=== PATIENT | female | born 1935 | race Caucasian/White ===

== ENCOUNTER 2017-09-07 00:27 | Emergency (ER) | payer OTHER, SELFPAY ==
[~2017-09-07] VITALS: Ht 144.8 cm; Wt 61.2 kg
[~2017-09-07 00:27] MED LIST: ALFALFA250 MG; Antivert25 MG PO; Aspirin EC81 MG; BLOOD PRESSURE MED; CLOP75 PO; DIABETES; DICL75ER; DIGO.125; FISH1000 PO; GABA600 PO; GLIP10 PO; GLYMET5; INSLI100I SC; INSULANI SC; INSULANPEN SC; LEVFLO500 PO; LEVO750 PO; LEVSOD50 PO; LISI5; LISI5 PO; LOVA40 PO; METO50; METO50ER PO; METR500 PO; MULTI VITAMIN1 EACH PO; MULVITB&C PO; NIAC500 PO; NITR100CA PO; ONDA4 PO; ONDA4ODT MM; QUIN5; RANI150; RANI150 PO; RXONDA4ODT MM; SPIR25; TOCO400 PO; TRAM50 PO; [UNRECOGNIZED DRUG - REMARK]
[2017-09-07 01:08] LABS: Hematocrit 34.9 % (33.0-51.0); Mean Corpuscular HGB 31.9 pg (26.0-34.0); Mean Corpuscular HGB Conc 34.4 g/dL (31.5-36.5); Mean Corpuscular Volume 93 fL (80-100); Mean Platelet Volume 11.1 fL (9.1-12.4); Platelet Count 182 K/mm3 (150-400); RDW Coefficient Variation 12.1 % (11.7-14.2); RDW Standard Deviation 41.5 fL (35.1-46.3); Red Blood Cell Count 3.76 M/mm3 (3.80-5.20); White Blood Cell Count 5.31 K/mm3 (4.00-11.30)
[2017-09-07 01:23] LABS: Albumin, Blood 3.6 g/dL (3.4-5.0); Bilirubin, Total 0.3 mg/dL (0.1-1.0); Bun/Creatinine Ratio 21.4 (12.0-20.0); Calcium, Blood 8.3 mg/dL (8.5-10.1); Creatinine, Blood 1.03 mg/dL (0.40-1.00); Globulin, Blood 3.6 g/dL (2.2-4.0); Potassium, Blood 3.7 mmol/L (3.5-5.5); Total Protein, Blood 7.2 g/dL (6.4-8.2); Troponin I 0.028 ng/mL (0.000-0.040)
[2017-09-07 01:25] LABS: BAND PERCENT MAN 12 % (0-8); BASOPHILS PERCENT MAN 0 % (0-2); EOSINOPHILS PERCENT MAN 2 % (0-6); LYMPHOCYTES ABSOLUTE MAN 0.31 K/mm3 (0.84-5.20); LYMPHOCYTES PERCENT MAN 6 % (21-46); MONOCYTES ABSOLUTE MAN 0.42 K/mm3 (0.16-1.47); MONOCYTES PERCENT MAN 8 % (4-13); NEUTROPHILS ABSOLUTE MAN 4.46 K/mm3 (1.96-9.15); SEG NEUTROPHILS PERCENT MAN 72 % (41-73); TOTAL CELLS COUNTED 100
[2017-09-07 01:57] LABS: Influenza A Negative (NEGATIVE); Influenza B Positive (NEGATIVE)
== END 2017-09-07 03:25 | disposition home or self-care (01) ==
LOC: ER 00:27
PROVIDERS: Emergency Medicine
DX: R55 Syncope and collapse (principal); J10.1 Influenza due to other identified influenza virus with other respiratory manifestations; Z88.2 Allergy status to sulfonamides; Z88.1 Allergy status to other antibiotic agents; Z79.899 Other long term (current) drug therapy; Z79.82 Long term (current) use of aspirin; Z79.84 Long term (current) use of oral hypoglycemic drugs; E11.9 Type 2 diabetes mellitus without complications; I11.0 Hypertensive heart disease with heart failure; I50.9 Heart failure, unspecified
CPT/HCPCS: 71046; 80053; 84484; 85025; 87804; 93005; 93010; 99283; J7030

== ENCOUNTER 2017-09-12 19:14 | Observation (INO) | payer OTHER, SELFPAY ==
[~2017-09-12] VITALS: Ht 144.8 cm; Wt 57.4 kg
[2017-09-12 20:08] LABS: BASOPHILS ABSOLUTE AUTO 0.01 K/mm3 (0.00-0.23); BASOPHILS PERCENT AUTO 0 % (0-2); EOSINOPHILS ABSOLUTE AUTO 0.02 K/mm3 (0.00-0.68); EOSINOPHILS PERCENT AUTO 0 % (0-6); Hematocrit 39.8 % (33.0-51.0); Hemoglobin 14.3 g/dL (11.5-16.0); IMMATURE GRAN ABSOLUTE AUTO 0.01 K/mm3 (0.00-0.10); IMMATURE GRAN PERCENT AUTO 0 % (0-1); LYMPHOCYTES ABSOLUTE AUTO 2.12 K/mm3 (0.84-5.20); LYMPHOCYTES PERCENT AUTO 42 % (21-46); MONOCYTES ABSOLUTE AUTO 0.34 K/mm3 (0.16-1.47); MONOCYTES PERCENT AUTO 7 % (4-13); Mean Corpuscular HGB 31.4 pg (26.0-34.0); Mean Corpuscular HGB Conc 35.9 g/dL (31.5-36.5); Mean Corpuscular Volume 88 fL (80-100); Mean Platelet Volume 10.7 fL (9.1-12.4); NEUTROPHILS PERCENT AUTO 50 % (41-73); Platelet Count 240 K/mm3 (150-400); RDW Coefficient Variation 11.9 % (11.7-14.2); RDW Standard Deviation 38.5 fL (35.1-46.3); Red Blood Cell Count 4.55 M/mm3 (3.80-5.20)
[2017-09-12 20:28] LABS: Bilirubin, Total 0.5 mg/dL (0.1-1.0); Bun/Creatinine Ratio 24.5 (12.0-20.0); Calcium, Blood 9.5 mg/dL (8.5-10.1); Creatinine, Blood 1.02 mg/dL (0.40-1.00); Globulin, Blood 4.1 g/dL (2.2-4.0); Potassium, Blood 3.9 mmol/L (3.5-5.5); Total Protein, Blood 8.1 g/dL (6.4-8.2); Troponin I 0.047 ng/mL (0.000-0.040)
[2017-09-12 20:39] LABS: Source, Urine Catheter
[2017-09-12 20:45] LABS: Bilirubin, Urine Neg (Neg); Blood, Urine Neg (Neg); Glucose Qualitative, Urine Neg (Neg); Ketones, Urine 1+ (Neg); Leukocyte Esterase, Urine Neg (Neg); Nitrite, Urine Neg (Neg); Protein, Urine Neg (Neg); Specific Gravity, Urine 1.005 (1.003-1.022); Urobilinogen, Urine NORM (Normal)
[2017-09-12 21:11] LABS: Appearance, Urine Clear (Clear); Color, Urine Yellow (P-Yellow)
[2017-09-12] MEDS ORDERED: LEVSOD50 PO (23:50)
[2017-09-13 02:18] LABS: Influenza A Negative (NEGATIVE); Influenza B Negative (NEGATIVE)
[2017-09-13 02:40] LABS: BASOPHILS ABSOLUTE AUTO 0.01 K/mm3 (0.00-0.23); BASOPHILS PERCENT AUTO 0 % (0-2); EOSINOPHILS ABSOLUTE AUTO 0.02 K/mm3 (0.00-0.68); EOSINOPHILS PERCENT AUTO 1 % (0-6); Hematocrit 35.5 % (33.0-51.0); Hemoglobin 12.3 g/dL (11.5-16.0); Mean Corpuscular HGB 31.2 pg (26.0-34.0); Mean Corpuscular HGB Conc 34.6 g/dL (31.5-36.5); Mean Corpuscular Volume 90 fL (80-100); Mean Platelet Volume 10.8 fL (9.1-12.4); Platelet Count 188 K/mm3 (150-400); RDW Standard Deviation 39.6 fL (35.1-46.3); Red Blood Cell Count 3.94 M/mm3 (3.80-5.20); White Blood Cell Count 4.25 K/mm3 (4.00-11.30)
[2017-09-13 02:46] LABS: IMMATURE GRAN ABSOLUTE AUTO 0.01 K/mm3 (0.00-0.10); IMMATURE GRAN PERCENT AUTO 0 % (0-1); LYMPHOCYTES ABSOLUTE AUTO 1.49 K/mm3 (0.84-5.20); LYMPHOCYTES PERCENT AUTO 35 % (21-46); MONOCYTES ABSOLUTE AUTO 0.33 K/mm3 (0.16-1.47); MONOCYTES PERCENT AUTO 8 % (4-13); NEUTROPHILS ABSOLUTE AUTO 2.39 K/mm3 (1.96-9.15); NEUTROPHILS PERCENT AUTO 56 % (41-73)
[2017-09-13 03:03] LABS: Creatine Kinase MB 2.4 ng/mL (0.0-3.6); Creatine Kinase MB Index 1.2 (0.0-4.0); Troponin I 0.045 ng/mL (0.000-0.040)
[2017-09-13 03:04] LABS: Anion Gap 11 mmol/L (6-16); Blood Urea Nitrogen 23 mg/dL (8-24); Bun/Creatinine Ratio 25.4 (12.0-20.0); CO2, Blood 24 mmol/L (21-32); Calcium, Blood 8.1 mg/dL (8.5-10.1); Chloride, Blood 103 mmol/L (98-108); Cholesterol 128 mg/dL (50-200); Creatinine, Blood 0.91 mg/dL (0.40-1.00); Glomerular Filtration Rate >60 (60-); Glucose, Blood 204 mg/dL (70-99); Potassium, Blood 3.7 mmol/L (3.5-5.5); Sodium, Blood 138 mmol/L (136-145); Triglycerides 122 mg/dL (30-160)
[2017-09-13 08:42] LABS: Creatine Kinase MB 2.1 ng/mL (0.0-3.6); Creatine Kinase MB Index 1.1 (0.0-4.0); Troponin I 0.051 ng/mL (0.000-0.040)
== END 2017-09-14 11:54 | disposition home or self-care (01) ==
LOC: ER 19:14 → MEDS 19:15 → PCU 19:15 → ER 22:26 → PCU 23:35 → MEDS 09-13 20:00 → ENPENDDIS 09-14 09:24 → MEDS 09-14 11:54
PROVIDERS: Emergency Medicine; Family Medicine
DX: R07.9 Chest pain, unspecified (principal); R06.02 Shortness of breath; R79.89 Other specified abnormal findings of blood chemistry; R19.7 Diarrhea, unspecified; E11.9 Type 2 diabetes mellitus without complications; I16.0 Hypertensive urgency; I11.0 Hypertensive heart disease with heart failure; I50.9 Heart failure, unspecified; E03.9 Hypothyroidism, unspecified; Z79.01 Long term (current) use of anticoagulants; Z86.19 Personal history of other infectious and parasitic diseases; Z95.0 Presence of cardiac pacemaker; Z90.49 Acquired absence of other specified parts of digestive tract; Z96.643 Presence of artificial hip joint, bilateral; Z98.890 Other specified postprocedural states; Z90.710 Acquired absence of both cervix and uterus; Z88.1 Allergy status to other antibiotic agents; Z88.2 Allergy status to sulfonamides; Z79.899 Other long term (current) drug therapy
CPT/HCPCS: 36415; 51701; 71046; 80048; 80053; 81003; 82465; 82550; 82553; 82947; 83605; 83880; 84443; 84478; 84484; 85025; 87493; 87804; 93005; 93010; 96360; 96361; 99285; G0378; J1650; J1815; J7030

== ENCOUNTER 2018-02-14 12:01 | Emergency (ER) | payer OTHER ==
[~2018-02-14] VITALS: Ht 144.8 cm; Wt 59.9 kg
[2018-02-14 12:51] LABS: BASOPHILS ABSOLUTE AUTO 0.04 K/mm3 (0.00-0.23); BASOPHILS PERCENT AUTO 1 % (0-2); EOSINOPHILS ABSOLUTE AUTO 0.16 K/mm3 (0.00-0.68); EOSINOPHILS PERCENT AUTO 2 % (0-6); Hematocrit 34.9 % (33.0-51.0); Hemoglobin 11.9 g/dL (11.5-16.0); IMMATURE GRAN ABSOLUTE AUTO 0.02 K/mm3 (0.00-0.10); IMMATURE GRAN PERCENT AUTO 0 % (0-1); LYMPHOCYTES ABSOLUTE AUTO 2.04 K/mm3 (0.84-5.20); LYMPHOCYTES PERCENT AUTO 27 % (21-46); MONOCYTES ABSOLUTE AUTO 0.58 K/mm3 (0.16-1.47); MONOCYTES PERCENT AUTO 8 % (4-13); Mean Corpuscular HGB 31.7 pg (26.0-34.0); Mean Corpuscular HGB Conc 34.1 g/dL (31.5-36.5); Mean Corpuscular Volume 93 fL (80-100); NEUTROPHILS ABSOLUTE AUTO 4.81 K/mm3 (1.96-9.15); NEUTROPHILS PERCENT AUTO 63 % (41-73); Platelet Count 273 K/mm3 (150-400); RDW Coefficient Variation 12.8 % (11.7-14.2); RDW Standard Deviation 43.7 fL (35.1-46.3); Red Blood Cell Count 3.75 M/mm3 (3.80-5.20); White Blood Cell Count 7.65 K/mm3 (4.00-11.30)
[2018-02-14 13:05] LABS: Albumin, Blood 3.5 g/dL (3.4-5.0); Albumin/Globulin Ratio 0.8 (0.8-1.8); Bilirubin, Total 0.3 mg/dL (0.1-1.0); Bun/Creatinine Ratio 22.5 (12.0-20.0); Calcium, Blood 9.3 mg/dL (8.5-10.1); Creatinine, Blood 1.02 mg/dL (0.40-1.00); Globulin, Blood 4.2 g/dL (2.2-4.0); Potassium, Blood 4.4 mmol/L (3.5-5.5); Total Protein, Blood 7.7 g/dL (6.4-8.2)
[2018-02-15] MEDS ORDERED: PRED5 PO (16:16)
== END 2018-02-14 18:34 | disposition home or self-care (01) ==
LOC: ER 12:01
PROVIDERS: Nurse Practitioner Family
DX: M86.9 Osteomyelitis, unspecified (principal); Z88.2 Allergy status to sulfonamides; Z88.1 Allergy status to other antibiotic agents; Z79.899 Other long term (current) drug therapy; Z79.82 Long term (current) use of aspirin; E11.9 Type 2 diabetes mellitus without complications; I11.0 Hypertensive heart disease with heart failure; I50.9 Heart failure, unspecified
CPT/HCPCS: 36415; 73201; 80053; 85025; 96360; 99284-25; J7030; Q9967

== ENCOUNTER 2018-02-15 12:19 | Inpatient (IN) | payer OTHER ==
[~2018-02-15] VITALS: Ht 152.4 cm; Wt 63.3 kg
[2018-02-15] MEDS ORDERED: PRED5 PO (16:16)
[2018-02-16 05:01] LABS: BASOPHILS ABSOLUTE AUTO 0.05 K/mm3 (0.00-0.23); BASOPHILS PERCENT AUTO 1 % (0-2); EOSINOPHILS ABSOLUTE AUTO 0.25 K/mm3 (0.00-0.68); EOSINOPHILS PERCENT AUTO 4 % (0-6); Hematocrit 33.6 % (33.0-51.0); Hemoglobin 11.5 g/dL (11.5-16.0); IMMATURE GRAN ABSOLUTE AUTO 0.02 K/mm3 (0.00-0.10); IMMATURE GRAN PERCENT AUTO 0 % (0-1); LYMPHOCYTES ABSOLUTE AUTO 1.98 K/mm3 (0.84-5.20); LYMPHOCYTES PERCENT AUTO 30 % (21-46); MONOCYTES ABSOLUTE AUTO 0.53 K/mm3 (0.16-1.47); MONOCYTES PERCENT AUTO 8 % (4-13); Mean Corpuscular HGB 31.1 pg (26.0-34.0); Mean Corpuscular HGB Conc 34.2 g/dL (31.5-36.5); Mean Corpuscular Volume 91 fL (80-100); NEUTROPHILS ABSOLUTE AUTO 3.74 K/mm3 (1.96-9.15); NEUTROPHILS PERCENT AUTO 57 % (41-73); Platelet Count 298 K/mm3 (150-400); RDW Coefficient Variation 12.9 % (11.7-14.2); RDW Standard Deviation 42.2 fL (35.1-46.3); White Blood Cell Count 6.57 K/mm3 (4.00-11.30)
[2018-02-16 05:20] LABS: International Normalized Ratio 0.99; Prothrombin Time Results 10.2 Sec (9.7-11.5)
[2018-02-16 05:28] LABS: Albumin, Blood 3.1 g/dL (3.4-5.0); Albumin/Globulin Ratio 0.8 (0.8-1.8); Bilirubin, Total 0.3 mg/dL (0.1-1.0); Bun/Creatinine Ratio 21.4 (12.0-20.0); Calcium, Blood 9.4 mg/dL (8.5-10.1); Creatinine, Blood 1.03 mg/dL (0.40-1.00); Globulin, Blood 3.8 g/dL (2.2-4.0); Potassium, Blood 3.7 mmol/L (3.5-5.5); Total Protein, Blood 6.9 g/dL (6.4-8.2)
[2018-02-17] MEDS ORDERED: Tylenol325 MG PO (11:01)
[2018-02-17] MEDS ORDERED: HYDR1TAB94 PO (11:03)
[2018-02-17] MEDS ORDERED: LEVFLO500 PO (11:07)
== END 2018-02-17 11:46 | disposition home or self-care (01) | DRG 514 ==
LOC: ER 12:19 → MEDS 12:20 → ENPENDDIS 02-17 10:00 → MEDS 02-17 11:46
PROVIDERS: Internal Medicine; Orthopaedic Surgery
PROC: 0X6N0Z1 Detachment at Right Index Finger, High, Open Approach (ICD-10-PCS; principal; 2018-02-16 12:30)
DX: M86.641 Other chronic osteomyelitis, right hand (principal); Z79.82 Long term (current) use of aspirin; Z79.4 Long term (current) use of insulin; I50.9 Heart failure, unspecified; I11.0 Hypertensive heart disease with heart failure; Z96.643 Presence of artificial hip joint, bilateral; E03.9 Hypothyroidism, unspecified; E11.40 Type 2 diabetes mellitus with diabetic neuropathy, unspecified; Z95.0 Presence of cardiac pacemaker
CPT/HCPCS: 36415; 80048; 80053; 82947; 85025; 85027; 85610; 88305; 88311; 96365; 99285-25; J0360; J2001; J2250; J2370; J3010; J3370; J7120

== ENCOUNTER 2018-02-27 09:52 | Emergency (ER) | payer OTHER ==
[~2018-02-27] VITALS: Ht 139.7 cm; Wt 62.6 kg
[~2018-02-27 09:52] MED LIST changes: +HYDR1TAB94 PO; +PRED5 PO; +Tylenol325 MG PO
[2018-02-27 10:21] LABS: BASOPHILS ABSOLUTE AUTO 0.04 K/mm3 (0.00-0.23); BASOPHILS PERCENT AUTO 1 % (0-2); EOSINOPHILS PERCENT AUTO 3 % (0-6); Hematocrit 39.1 % (33.0-51.0); Hemoglobin 13.1 g/dL (11.5-16.0); IMMATURE GRAN ABSOLUTE AUTO 0.02 K/mm3 (0.00-0.10); IMMATURE GRAN PERCENT AUTO 0 % (0-1); LYMPHOCYTES ABSOLUTE AUTO 1.77 K/mm3 (0.84-5.20); LYMPHOCYTES PERCENT AUTO 27 % (21-46); MONOCYTES ABSOLUTE AUTO 0.48 K/mm3 (0.16-1.47); MONOCYTES PERCENT AUTO 7 % (4-13); Mean Corpuscular HGB 31.6 pg (26.0-34.0); Mean Corpuscular HGB Conc 33.5 g/dL (31.5-36.5); NEUTROPHILS ABSOLUTE AUTO 4.08 K/mm3 (1.96-9.15); NEUTROPHILS PERCENT AUTO 62 % (41-73); Platelet Count 257 K/mm3 (150-400); RDW Coefficient Variation 12.9 % (11.7-14.2); RDW Standard Deviation 44.4 fL (35.1-46.3); Red Blood Cell Count 4.15 M/mm3 (3.80-5.20); White Blood Cell Count 6.59 K/mm3 (4.00-11.30)
[2018-02-27 10:23] LABS: Mean Corpuscular Volume 94 fL (80-100)
[2018-02-27 10:39] LABS: Albumin, Blood 3.6 g/dL (3.4-5.0); Albumin/Globulin Ratio 0.9 (0.8-1.8); Bilirubin, Total 0.2 mg/dL (0.1-1.0); Bun/Creatinine Ratio 20.4 (12.0-20.0); Calcium, Blood 9.4 mg/dL (8.5-10.1); Creatinine, Blood 1.03 mg/dL (0.40-1.00); Globulin, Blood 4.2 g/dL (2.2-4.0); Total Protein, Blood 7.8 g/dL (6.4-8.2); Troponin I 0.015 ng/mL (0.000-0.040)
[2018-02-27 11:14] LABS: Source, Urine Clean Catch
[2018-02-27 11:19] LABS: Bilirubin, Urine Neg (Neg); Blood, Urine Neg (Neg); Glucose Qualitative, Urine 1+ (Neg); Ketones, Urine Neg (Neg); Leukocyte Esterase, Urine 3+ (Neg); Nitrite, Urine Neg (Neg); Protein, Urine Neg (Neg); Urobilinogen, Urine NORM (Normal)
[2018-02-27 11:27] LABS: Appearance, Urine Clear (Clear); Color, Urine Yellow (P-Yellow)
[2018-02-27 11:29] LABS: Bacteria Rare /hpf; Red Blood Cells, Urine 0-2 /hpf (0-2)
[2018-02-27 11:30] LABS: Squamous Epithelial Cells Few /hpf (Few)
[2018-02-27] MEDS ORDERED: CIPR250 PO (12:04)
== END 2018-02-27 12:39 | disposition home or self-care (01) ==
LOC: ER 09:52
PROVIDERS: Internal Medicine; Physician Assistant
DX: N39.0 Urinary tract infection, site not specified (principal); K59.00 Constipation, unspecified; I11.0 Hypertensive heart disease with heart failure; I50.9 Heart failure, unspecified; E11.9 Type 2 diabetes mellitus without complications; Z88.2 Allergy status to sulfonamides; Z88.1 Allergy status to other antibiotic agents; Z79.899 Other long term (current) drug therapy; Z79.82 Long term (current) use of aspirin; Z79.4 Long term (current) use of insulin
CPT/HCPCS: 36415; 71046; 74176; 80053; 81001; 84484; 85025; 87086; 93005; 93010; 99285-25

== ENCOUNTER 2019-03-23 14:57 | Emergency (ER) | payer OTHER ==
[~2019-03-23] VITALS: Ht 144.8 cm; Wt 63.5 kg
[~2019-03-23 14:57] MED LIST changes: +CIPR250 PO
[2019-03-23] MEDS ORDERED: Novolog100 UNIT/1 (15:26)
[2019-03-23] MEDS ORDERED: Norco 5-325 Ta1 EACH PO (16:31)
== END 2019-03-23 16:39 | disposition home or self-care (01) ==
LOC: ER 14:57
DX: M25.551 Pain in right hip (principal); Z88.2 Allergy status to sulfonamides; Z88.1 Allergy status to other antibiotic agents; Z79.4 Long term (current) use of insulin; Z79.899 Other long term (current) drug therapy; Z79.82 Long term (current) use of aspirin; E11.9 Type 2 diabetes mellitus without complications; I11.0 Hypertensive heart disease with heart failure; I50.9 Heart failure, unspecified
CPT/HCPCS: 73502; 99283-25

== ENCOUNTER → 2019-08-13 | Outpatient (CLI) | payer OTHER ==
[~2019-08-13] MED LIST changes: +Norco 5-325 Ta1 EACH PO; +Novolog100 UNIT/1
[2019-08-13 20:30] LABS: Creatinine, Urine Random 64.1 mg/dL (27.00-270.00); Protein, Urine Random 26.6 mg/dL (0.0-11.9)
== END | disposition home or self-care (01) ==
LOC: LAB SHORT 19:10 → LAB 19:10
PROVIDERS: Internal Medicine
DX: N18.3 Chronic kidney disease, stage 3 (moderate) (principal)
CPT/HCPCS: 82570; 84156

== ENCOUNTER → 2019-12-05 | Outpatient (CLI) | payer OTHER ==
[2019-12-05 15:16] LABS: Source, Urine Clean Catch
[2019-12-05 16:53] LABS: Bilirubin, Urine Neg (Neg); Blood, Urine Neg (Neg); Glucose Qualitative, Urine Neg (Neg); Ketones, Urine Neg (Neg); Leukocyte Esterase, Urine 2+ (Neg); Nitrite, Urine Neg (Neg); Protein, Urine 2+ (Neg); Urobilinogen, Urine NORM (Normal)
[2019-12-05 17:05] LABS: Appearance, Urine Cloudy (Clear); Color, Urine Yellow (P-Yellow)
[2019-12-05 17:06] LABS: Amorphous Heavy (0-Heavy); Bacteria Mod /hpf; Mucus Light (0-Heavy); Red Blood Cells, Urine 0-2 /hpf (0-2); Squamous Epithelial Cells Few /hpf (Few); Triple Phosphate Crystals Mod /hpf
== END | disposition home or self-care (01) ==
LOC: LAB 15:14 → LAB SHORT 15:14
PROVIDERS: Registered Nurse
DX: N39.0 Urinary tract infection, site not specified (principal)
CPT/HCPCS: 81001; 87086

== ENCOUNTER → 2020-01-14 | Outpatient (CLI) | payer OTHER ==
[~2020-01-14] MED LIST changes: +ASPI81CH PO; +BASAGLAR K100 UNIT/1; +EUTHYROX50 MCG; +EUTHYROX50 MCG PO; -INSULANPEN SC; +NOVOLOG100 UNIT/2 SQ; -Novolog100 UNIT/1
== END | disposition home or self-care (01) ==
LOC: LAB 13:42 → LAB SHORT 13:42
DX: N39.0 Urinary tract infection, site not specified (principal)
CPT/HCPCS: 87086

== ENCOUNTER 2020-02-23 20:06 | Emergency (ER) | payer OTHER ==
[~2020-02-23] VITALS: Ht 142.2 cm; Wt 61.2 kg
== END 2020-02-24 00:20 | disposition home or self-care (01) ==
LOC: ER 20:06
DX: T84.020A Dislocation of internal right hip prosthesis, initial encounter (principal); Z88.1 Allergy status to other antibiotic agents; Z88.2 Allergy status to sulfonamides; Z79.82 Long term (current) use of aspirin; Z79.899 Other long term (current) drug therapy; E11.9 Type 2 diabetes mellitus without complications; E03.9 Hypothyroidism, unspecified; I50.9 Heart failure, unspecified; G47.30 Sleep apnea, unspecified
CPT/HCPCS: 27250; 73502; 96374-59; 99152; 99284-25; J3010; J7030

== ENCOUNTER → 2020-06-17 | Outpatient (CLI) | payer OTHER ==
[2020-06-17 14:48] LABS: Source, Urine Clean Catch
[2020-06-17 18:17] LABS: Bilirubin, Urine Neg (Neg); Blood, Urine Neg (Neg); Glucose Qualitative, Urine 2+ (Neg); Ketones, Urine Neg (Neg); Leukocyte Esterase, Urine 2+ (Neg); Nitrite, Urine Neg (Neg); Protein, Urine Neg (Neg); Specific Gravity, Urine 1.015 (1.003-1.022); Urobilinogen, Urine NORM (Normal)
[2020-06-17 18:26] LABS: Appearance, Urine Cloudy (Clear); Color, Urine Yellow (P-Yellow)
[2020-06-17 18:27] LABS: Bacteria Many /hpf; Red Blood Cells, Urine 0-2 /hpf (0-2); Squamous Epithelial Cells Few /hpf (Few)
== END | disposition home or self-care (01) ==
LOC: LAB 14:15 → LAB SHORT 14:15 → LAB FUT 06-10 18:55
PROVIDERS: Registered Nurse
DX: R30.0 Dysuria (principal)
CPT/HCPCS: 81001; 87077; 87086; 87186

== ENCOUNTER 2020-08-27 05:43 | Emergency (ER) | payer OTHER ==
[~2020-08-27] VITALS: Ht 144.8 cm; Wt 61.2 kg
[~2020-08-27 05:43] MED LIST changes: -BASAGLAR K100 UNIT/1; +BASAGLAR K100 UNIT/1 SC; -EUTHYROX50 MCG
[2020-08-27 06:24] LABS: BASOPHILS ABSOLUTE AUTO 0.03 K/mm3 (0.00-0.23); BASOPHILS PERCENT AUTO 1 % (0-2); EOSINOPHILS PERCENT AUTO 5 % (0-6); Hematocrit 39.1 % (33.0-51.0); Hemoglobin 13.1 g/dL (11.5-16.0); IMMATURE GRAN ABSOLUTE AUTO 0.01 K/mm3 (0.00-0.10); IMMATURE GRAN PERCENT AUTO 0 % (0-1); LYMPHOCYTES ABSOLUTE AUTO 2.03 K/mm3 (0.84-5.20); LYMPHOCYTES PERCENT AUTO 31 % (21-46); MONOCYTES ABSOLUTE AUTO 0.53 K/mm3 (0.16-1.47); MONOCYTES PERCENT AUTO 8 % (4-13); Mean Corpuscular HGB 31.3 pg (26.0-34.0); Mean Corpuscular HGB Conc 33.5 g/dL (31.5-36.5); Mean Corpuscular Volume 94 fL (80-100); Mean Platelet Volume 11.4 fL (9.1-12.4); NEUTROPHILS ABSOLUTE AUTO 3.56 K/mm3 (1.96-9.15); NEUTROPHILS PERCENT AUTO 55 % (41-73); Platelet Count 241 K/mm3 (150-400); RDW Coefficient Variation 11.9 % (11.7-14.2); RDW Standard Deviation 41.1 fL (35.1-46.3); Red Blood Cell Count 4.18 M/mm3 (3.80-5.20); White Blood Cell Count 6.46 K/mm3 (4.00-11.30)
[2020-08-27 06:38] LABS: Albumin, Blood 3.7 g/dL (3.4-5.0); Albumin/Globulin Ratio 0.9 (0.8-1.8); Bilirubin, Total 0.3 mg/dL (0.1-1.0); Bun/Creatinine Ratio 33.3 (12.0-20.0); Calcium, Blood 10.1 mg/dL (8.5-10.1); Creatinine, Blood 0.99 mg/dL (0.40-1.00); Potassium, Blood 4.5 mmol/L (3.5-5.5); Total Protein, Blood 7.7 g/dL (6.4-8.2)
[2020-08-27 06:40] LABS: Source, Urine Clean Catch
[2020-08-27 06:48] LABS: Appearance, Urine Clear (Clear); Bilirubin, Urine Neg (Neg); Blood, Urine Neg (Neg); Color, Urine Yellow (P-Yellow); Glucose Qualitative, Urine 2+ (Neg); Ketones, Urine Neg (Neg); Leukocyte Esterase, Urine 3+ (Neg); Nitrite, Urine Pos (Neg); Protein, Urine Neg (Neg); Urobilinogen, Urine NORM (Normal)
[2020-08-27 06:57] LABS: Bacteria Many /hpf; Red Blood Cells, Urine 0-2 /hpf (0-2); Squamous Epithelial Cells Few /hpf (Few)
[2020-08-27] MEDS ORDERED: CIPR500 PO (07:51)
[2020-08-27] MEDS ORDERED: DOC250 PO (07:51)
[2020-08-27] MEDS ORDERED: Flomax0.4 MG PO (08:11)
== END 2020-08-27 08:44 | disposition home or self-care (01) ==
LOC: ER 05:43
PROVIDERS: Emergency Medicine
DX: N39.0 Urinary tract infection, site not specified (principal); N20.0 Calculus of kidney; I11.0 Hypertensive heart disease with heart failure; I50.9 Heart failure, unspecified; E11.9 Type 2 diabetes mellitus without complications; E03.9 Hypothyroidism, unspecified; Z88.2 Allergy status to sulfonamides; Z88.1 Allergy status to other antibiotic agents; Z79.4 Long term (current) use of insulin; Z79.899 Other long term (current) drug therapy; Z79.82 Long term (current) use of aspirin; Z95.810 Presence of automatic (implantable) cardiac defibrillator
CPT/HCPCS: 36415; 74177; 80053; 81001; 83690; 85025; 87077; 87086; 87186; 93005; 93010; 96361; 96374-59; 99284-25; A9270; J7030; Q9967

== ENCOUNTER → 2020-09-10 | Outpatient (CLI) | payer OTHER ==
[~2020-09-10] MED LIST changes: +AMOCLA875 PO; +CEPH500 PO; +CIPR500 PO; +DOC250 PO; +DOCUZEN 8.6-501 EACH PO; +DOXY100 PO; +Flomax0.4 MG PO; +GABA100; +MIRALAX17 GM PO; +Macrobid 100 M100 MG PO; +ONDA4ODT SL; +VISBIOME 112.51 EACH PO
[2020-09-10 14:13] LABS: Source, Urine Clean Catch
[2020-09-10 15:05] LABS: Appearance, Urine Hazy (Clear); Bilirubin, Urine Neg (Neg); Blood, Urine 1+ (Neg); Color, Urine Yellow (P-Yellow); Glucose Qualitative, Urine 2+ (Neg); Ketones, Urine Neg (Neg); Leukocyte Esterase, Urine 3+ (Neg); Nitrite, Urine Neg (Neg); Protein, Urine Neg (Neg); Urobilinogen, Urine NORM (Normal); pH, Urine 6.5 (5.0-8.0)
[2020-09-10 15:43] LABS: White Blood Cells, Urine 25-50 /hpf (0-5)
[2020-09-10 15:44] LABS: Red Blood Cells, Urine 0-2 /hpf (0-2); Squamous Epithelial Cells Few /hpf (Few)
[2020-09-10 15:45] LABS: Bacteria Rare /hpf; Transitional Epithelial Cells Few /hpf (0-Rare); Yeast/Fungi Urine Mod /hpf
== END | disposition home or self-care (01) ==
LOC: OLS 14:11 → LAB SHORT 14:11
PROVIDERS: Registered Nurse
DX: R10.9 Unspecified abdominal pain (principal)
CPT/HCPCS: 81001; 87086; 87106

== ENCOUNTER 2020-10-09 17:32 | Inpatient (IN) | payer OTHER, MEDICARE ==
[~2020-10-09] VITALS: Ht 147.3 cm; Wt 58.0 kg
[~2020-10-09 17:32] MED LIST changes: -AMOCLA875 PO; -CEPH500 PO; -DOCUZEN 8.6-501 EACH PO; -DOXY100 PO; -GABA100; -MIRALAX17 GM PO; -Macrobid 100 M100 MG PO; -ONDA4ODT SL; -VISBIOME 112.51 EACH PO
[2020-10-09 18:25] LABS: BASOPHILS ABSOLUTE AUTO 0.03 K/mm3 (0.00-0.23); BASOPHILS PERCENT AUTO 0 % (0-2); EOSINOPHILS ABSOLUTE AUTO 0.01 K/mm3 (0.00-0.68); EOSINOPHILS PERCENT AUTO 0 % (0-6); Hematocrit 37.3 % (33.0-51.0); IMMATURE GRAN ABSOLUTE AUTO 0.05 K/mm3 (0.00-0.10); IMMATURE GRAN PERCENT AUTO 0 % (0-1); LYMPHOCYTES PERCENT AUTO 6 % (21-46); MONOCYTES ABSOLUTE AUTO 0.48 K/mm3 (0.16-1.47); MONOCYTES PERCENT AUTO 4 % (4-13); Mean Corpuscular HGB 31.7 pg (26.0-34.0); Mean Corpuscular HGB Conc 34.9 g/dL (31.5-36.5); Mean Corpuscular Volume 91 fL (80-100); Mean Platelet Volume 11.3 fL (9.1-12.4); NEUTROPHILS ABSOLUTE AUTO 9.89 K/mm3 (1.96-9.15); NEUTROPHILS PERCENT AUTO 89 % (41-73); Platelet Count 228 K/mm3 (150-400); RDW Coefficient Variation 12.4 % (11.7-14.2); RDW Standard Deviation 41.5 fL (35.1-46.3); White Blood Cell Count 11.16 K/mm3 (4.00-11.30)
[2020-10-09 18:41] LABS: Albumin, Blood 3.8 g/dL (3.4-5.0); Albumin/Globulin Ratio 0.9 (0.8-1.8); Bilirubin, Total 0.5 mg/dL (0.1-1.0); Bun/Creatinine Ratio 22.5 (12.0-20.0); Calcium, Blood 10.4 mg/dL (8.5-10.1); Creatinine, Blood 1.51 mg/dL (0.40-1.00); Globulin, Blood 4.3 g/dL (2.2-4.0); Potassium, Blood 4.6 mmol/L (3.5-5.5); Total Protein, Blood 8.1 g/dL (6.4-8.2)
[2020-10-09 19:36] LABS: Source, Urine Voided
[2020-10-09 19:38] LABS: Appearance, Urine Cloudy (Clear); Bilirubin, Urine Neg (Neg); Blood, Urine 1+ (Neg); Color, Urine Yellow (P-Yellow); Glucose Qualitative, Urine 1+ (Neg); Ketones, Urine 1+ (Neg); Leukocyte Esterase, Urine 2+ (Neg); Nitrite, Urine Pos (Neg); Protein, Urine 2+ (Neg); Urobilinogen, Urine NORM (Normal)
[2020-10-09 19:49] LABS: White Blood Cells, Urine 25-50 /hpf (0-5)
[2020-10-09 19:50] LABS: Bacteria Many /hpf; Squamous Epithelial Cells Few /hpf (Few)
--- NOTE | 2020-10-10 00:01 | NUR ---
PATIENT WAS ADMITTED FOR UTI WITH WEAKNESS. JOSEFA ARRIVED TO THE FLOOR VIA GURNEY, TRANSFERRED TO BED. JOSEFA IS AOX4, DENIES ANY PAIN OR DISCOMFORT. ATTENDS CURRENTLY DRY. DENIES ANY BURNING OR PAIN WITH URINATION. PER LABS URINE IS CLOUDY. SHE IS VERY TIRED AND FATIQUED, STATES SHE IS TOO WEAK TO STAND. IS ABLE TO TURN IN BED AND FOLLOWS DIRECTION WELL. LUNG SOUNDS ARE CLEAR, HR 100% PACED ON TELE. VS WNL. BT HYPOACTIVE. SHE STATES HER STOOLS ARE JUST SLIGHTLY LOOSE NO DIARRHEA. PLACED IN ISOLATION FOR GI PANEL. NO SKIN ISSUES NOTED. IVF STARTED. BED ALARM PLACED, CALL LIGHT GIVEN.
[2020-10-10 05:07] LABS: BASOPHILS ABSOLUTE AUTO 0.02 K/mm3 (0.00-0.23); BASOPHILS PERCENT AUTO 0 % (0-2); EOSINOPHILS PERCENT AUTO 0 % (0-6); Hematocrit 32.2 % (33.0-51.0); IMMATURE GRAN ABSOLUTE AUTO 0.05 K/mm3 (0.00-0.10); IMMATURE GRAN PERCENT AUTO 0 % (0-1); LYMPHOCYTES ABSOLUTE AUTO 0.75 K/mm3 (0.84-5.20); LYMPHOCYTES PERCENT AUTO 6 % (21-46); MONOCYTES ABSOLUTE AUTO 0.72 K/mm3 (0.16-1.47); MONOCYTES PERCENT AUTO 6 % (4-13); Mean Corpuscular HGB 31.3 pg (26.0-34.0); Mean Corpuscular HGB Conc 34.2 g/dL (31.5-36.5); Mean Corpuscular Volume 92 fL (80-100); Mean Platelet Volume 11.2 fL (9.1-12.4); NEUTROPHILS ABSOLUTE AUTO 10.64 K/mm3 (1.96-9.15); NEUTROPHILS PERCENT AUTO 87 % (41-73); Platelet Count 198 K/mm3 (150-400); RDW Coefficient Variation 12.5 % (11.7-14.2); RDW Standard Deviation 41.9 fL (35.1-46.3); Red Blood Cell Count 3.51 M/mm3 (3.80-5.20); White Blood Cell Count 12.18 K/mm3 (4.00-11.30)
--- NOTE | 2020-10-10 05:17 | NUR ---
SHIFT SUMMARY: JOSEFA WAS ADMITTED LAST NIGHTFOR UTI. SHE IS AOX4 AND PLEASANT. SINCE SHE ARRIVED TO THE FLOOR SHE HAS BEEN SLEEPING, SHE IS VERY FATIQUED AND WEAK. IVF WERE STARTED AT 75ML/HR. INCONTIENT OF BOWEL AND URINE BUT HAS NOT HAD A BM THIS SHIFT TO COLLECT FOR GI PANEL. PLACED IN ISOLATION FOR PERCAUTION. NO NAUSEA OR PAIN TO NOTE. NO SKIN ISSUES. LUNG SOUNDS CLEAR, HR PACED 100% PER TELE. WILL CONTINUE TO MONITOR TILL DAY SHIFT ARRIVES. 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
[2020-10-10 05:39] LABS: Albumin, Blood 2.9 g/dL (3.4-5.0); Albumin/Globulin Ratio 0.8 (0.8-1.8); Bilirubin, Total 0.6 mg/dL (0.1-1.0); Bun/Creatinine Ratio 19.4 (12.0-20.0); Calcium, Blood 8.8 mg/dL (8.5-10.1); Creatinine, Blood 1.8 mg/dL (0.40-1.00); Globulin, Blood 3.6 g/dL (2.2-4.0); Potassium, Blood 4.3 mmol/L (3.5-5.5); Total Protein, Blood 6.5 g/dL (6.4-8.2)
--- NOTE | 2020-10-10 08:24 | NUR ---
CALLED DR LANEG- PT DECLINED LOVENOX AND STATED SHE WILL "USE THE LEG SQUEEZERS INSTEAD" PT ALSO HAS AN NPO ORDER STILL DENIES ANY NAUSEA AT THIS TIME. RECIEVED ORDER TO DC LOVENOX AND USE SCD'S WELL ADA DIET.
--- NOTE | 2020-10-10 15:00 | NUR ---
DR LANGE AT THE BEDSIDE TO SEE THE PT AT 1430- PT HAS NOT HAD ANY STOOL LOOSE OR FORMED SINCE ADMIT. ORDER RECIEVED FOR LAXITIVES AND DC C-DIFF R/O. PT NO LONGER IN ISOLATION SINCE ISOLATION WAS FOR R/O C-DIFF.
--- NOTE | 2020-10-10 16:19 | NUR ---
SHIFT SUMMARY- PT HAS SLEPT T/O THE DAY SHE SAID SHE IS JUST FEELING VERY TIRED. PT HAS HAD NO STOOLS ISO DC'D R/O C-DIFF DC'D. PT WAS GIVEN LAXITIVES PER DR LANGE'S ORDER THIS AFTERNOON. IV ABX FOR UTI GIVEN THIS MORNING. PT WORKED WITH PHYSICAL THERAPY HOWEVER SHE WAS VERY WEAK AND UNABLE TO DO MUCH CURRENT RECOMENDATION IS SNF D/T PT LACK OF STRENGTH. PT A&O X4, IN BED CALL LIGHT INREACH NO S&S OF DISTRESS NOTED AT THIS TIME WILL CTM.
[2020-10-11 05:20] LABS: Hemoglobin 10.5 g/dL (11.5-16.0); Mean Corpuscular HGB 31.7 pg (26.0-34.0); Mean Corpuscular Volume 91 fL (80-100); Mean Platelet Volume 11.3 fL (9.1-12.4); Platelet Count 161 K/mm3 (150-400); RDW Coefficient Variation 12.6 % (11.7-14.2); RDW Standard Deviation 42.2 fL (35.1-46.3); Red Blood Cell Count 3.31 M/mm3 (3.80-5.20); White Blood Cell Count 9.99 K/mm3 (4.00-11.30)
[2020-10-11 05:45] LABS: Albumin, Blood 2.5 g/dL (3.4-5.0); Anion Gap 8 mmol/L (6-16); Blood Urea Nitrogen 35 mg/dL (8-24); Bun/Creatinine Ratio 22.2 (12.0-20.0); CO2, Blood 23 mmol/L (21-32); Calcium, Blood 8.7 mg/dL (8.5-10.1); Chloride, Blood 102 mmol/L (98-108); Creatinine, Blood 1.58 mg/dL (0.40-1.00); Glomerular Filtration Rate 33 (60-); Glucose, Blood 149 mg/dL (70-99); Phosphorus, Blood 2.1 mg/dL (2.5-4.9); Potassium, Blood 4.1 mmol/L (3.5-5.5); Sodium, Blood 133 mmol/L (136-145)
--- NOTE | 2020-10-11 06:52 | NUR ---
10/11/20 0600 SLIGHT FEVER THIS SHIFT. DENIES ANY PAIN. VITALS AND HEART MONITOR STABLE. CALLS TO GET ON BEDPAN PRN FOR VOID. BLOOD SUGAR ONLY SLIGHTLY ELEVATED PAST 24 HOURS. TURNS SELF IN BED.
--- NOTE | 2020-10-11 16:16 | NUR ---
PT HAS A LOW TEMP 99.4 ON EVENING VITALS STATED SHE FEELS A BIT HEADACHY REQUESTED AN ORDER FOR PO TYLENOL FOR THE HEADACHE.
--- NOTE | 2020-10-11 17:37 | NUR ---
SHIFT SUMMARY- PT HAS HAD NO ACUTE CHANGE T/O THE SHIFT. SHE DID C/O A HEADACHE THIS EVENING MEDICATED WITH TYLENOL PER EMAR. OTHERWISE PT HAS HAD NO NAUSEA AND NO STOOLS. PT USES THE BED AMARAL FOR VOIDING, STATED SHE IS TOO WEAK TO USE THE BEDSIDE COMODE. WILL CTM AND PASS ON TO NIGHT RN IN BEDSIDE REPORT. PT IN BED CALL LIGHT IN REACH NO S&S OF DISTRESS NOTED.
--- NOTE | 2020-10-12 06:46 | NUR ---
10/12/20 0600 PT HAVING FREQUENT VOIDINGS ON BSC OR BEDPAN. LOW GRADE FEVER THE PAST 24 HOURS. HAD NAUSEA AND EMESIS LAST NIGHT AND WAS MEDICATED PER OCT. HEART MONITOR REMAINS "PACED IN THE 70'S".
--- NOTE | 2020-10-12 16:32 | NUR ---
PATIENT A/OX4, UP WITH FWW AND SBA TO RESTROOM. VSS, ON RA. NEEDS ENCOURAGEMENT TO GET UP OOB. CONTINENT OF URINE STOOL. SKIN INTACT. 20G IV TO RFA WNL AND SL. POOR APPETITE TODAY, DENIES ANY NAUSEA. VEGETARIAN/ADA DIET, ACHS BLOOD SUGARS. 100% PACED AT 75 ON TELE. LIVES WITH SON, THERAPY RECOMMENDING HOME WITH HOME HEALTH. FALL PRECAUTIONS IN PLACE, PATIENT USING CALL LIGHT FOR ASSISTANCE.
[2020-10-13 05:16] LABS: BASOPHILS ABSOLUTE AUTO 0.01 K/mm3 (0.00-0.23); BASOPHILS PERCENT AUTO 0 % (0-2); EOSINOPHILS ABSOLUTE AUTO 0.07 K/mm3 (0.00-0.68); EOSINOPHILS PERCENT AUTO 1 % (0-6); Hematocrit 32.6 % (33.0-51.0); Hemoglobin 11.6 g/dL (11.5-16.0); IMMATURE GRAN ABSOLUTE AUTO 0.03 K/mm3 (0.00-0.10); IMMATURE GRAN PERCENT AUTO 0 % (0-1); LYMPHOCYTES ABSOLUTE AUTO 1.13 K/mm3 (0.84-5.20); LYMPHOCYTES PERCENT AUTO 14 % (21-46); MONOCYTES ABSOLUTE AUTO 1.01 K/mm3 (0.16-1.47); MONOCYTES PERCENT AUTO 12 % (4-13); Mean Corpuscular HGB 31.4 pg (26.0-34.0); Mean Corpuscular HGB Conc 35.6 g/dL (31.5-36.5); Mean Corpuscular Volume 88 fL (80-100); Mean Platelet Volume 11.4 fL (9.1-12.4); NEUTROPHILS ABSOLUTE AUTO 5.98 K/mm3 (1.96-9.15); NEUTROPHILS PERCENT AUTO 73 % (41-73); Platelet Count 186 K/mm3 (150-400); RDW Coefficient Variation 12.1 % (11.7-14.2); White Blood Cell Count 8.23 K/mm3 (4.00-11.30)
--- NOTE | 2020-10-13 05:17 | NUR ---
10/13/20 0515 AWAKENED FOR LABWORK AND VITALS. CHEERFUL AND ASSIST TO [facility] FOR LOOSE,BROWN BM IN BRIEFS. GOOD ALCIDES-CARE GIVEN. DENIES ANY DISCOMOFRT. NO C/O NAUSEA THIS SHIFT. VITALS STABLE.
[2020-10-13 05:33] LABS: Calcium, Blood 9.5 mg/dL (8.5-10.1); Creatinine, Blood 1.16 mg/dL (0.40-1.00); Potassium, Blood 3.9 mmol/L (3.5-5.5)
--- NOTE | 2020-10-13 16:03 | NUR ---
PATIENT A/OX4 THIS SHIFT. SLEEPY THIS AM, BUT DID WAKE UP FOR LUNCH AND SPEND THE AFTERNOON IN THE CHAIR. ACHS BLOOD SUGARS, TOLERATING ADA DIET. UP WITH FWW AND 1 ASSIST. TYLENOL GIVEN X1 TODAY FOR BACK PAIN. SKIN INTACT. CONTINENT OF URINE/STOOL. PACED IN THE 70'S ON TELE, NO C/O CP OR PRESSURE. MIRALAX HELD THIS AM DUE TO DIARRHEA LAST NIGHT. CALM AND COOPERATIVE WITH CARE. CARE MANAGERS WORKING WITH FAMILY TO COME UP WITH SAFE DC PLAN. NO NEW CONCERNS THIS SHIFT.
--- NOTE | 2020-10-14 06:04 | NUR ---
PT IS ALERT, FORGETFUL AND PLEASANT. CBG AC COVERAGE, TELE MONITOR PACED RYTHM 1-ASSIST WITH FWW TO RESTROOM. DID C/O LOOSE STOOL FROM PREVIOUS EVENING.
[2020-10-14] MEDS ORDERED: METO50ER PO (09:42)
[2020-10-14] MEDS ORDERED: DOXY100 PO (09:43)
[2020-10-14] MEDS ORDERED: VISBIOME 112.51 EACH PO (09:44)
[2020-10-14] MEDS ORDERED: DOCUZEN 8.6-501 EACH PO (09:47)
[2020-10-14] MEDS ORDERED: GABA100 (10:02)
[2020-10-14] MEDS ORDERED: MIRALAX17 GM PO (10:05)
--- NOTE | 2020-10-14 11:22 | NUR ---
PT DISCHARGED TO HOME WITH DTR VIA WC. PT IV DC'D. PT VALUABLES WITH PT. MEDS FAXED TO [facility]; PT EDUCATED ABOUT THE MEDICATION CHANGES; PT DTR AT BEDSIDE TOO FOR EDUCATION. AGRICULTURAL EQUIPMENT DESIGN ENGINEER CAME IN FOR EXPLANATION ABOUT HOME HEALTH FOR PT/OT FOR THIS PT. PT ADMITTED BEING STILL WEAK AND MIGHT NEED EVALUATION FOR PT/OT H&H. PT PACKET WITH PT. PRINTED EDUCATION ABOUT UROSEPSIS, CONSTIPATION, AND LOW SLIDING SCALE COVRAGE FOR PT. PT MEDS GIVEN THIS AM. DENIES ANY OTHER CONCERNS.
== END 2020-10-14 11:21 | disposition home health service (06) | DRG 871 ==
LOC: ER 17:32 → MEDS 21:42
PROVIDERS: Internal Medicine; Student in an Organized Health Care Education/Training Program; ADMIT Internal Medicine
DX: A41.51 Sepsis due to Escherichia coli [E. coli] (principal); G92 Toxic encephalopathy; N39.0 Urinary tract infection, site not specified; N17.9 Acute kidney failure, unspecified; I13.0 Hypertensive heart and chronic kidney disease with heart failure and stage 1 through stage 4 chronic kidney disease, or unspecified chronic kidney disease; Z23 Encounter for immunization; N18.30 Chronic kidney disease, stage 3 unspecified; E11.65 Type 2 diabetes mellitus with hyperglycemia; K52.9 Noninfective gastroenteritis and colitis, unspecified; E86.0 Dehydration; E11.22 Type 2 diabetes mellitus with diabetic chronic kidney disease; E11.40 Type 2 diabetes mellitus with diabetic neuropathy, unspecified; E03.9 Hypothyroidism, unspecified; I50.9 Heart failure, unspecified; K59.00 Constipation, unspecified; Z90.49 Acquired absence of other specified parts of digestive tract; Z90.710 Acquired absence of both cervix and uterus; Z98.890 Other specified postprocedural states; Z88.1 Allergy status to other antibiotic agents; Z88.2 Allergy status to sulfonamides; Z79.4 Long term (current) use of insulin; Z79.82 Long term (current) use of aspirin; Z79.899 Other long term (current) drug therapy
CPT/HCPCS: 36415; 71045; 74177; 80048; 80053; 80069; 81001; 82947; 83690; 83880; 84443; 85025; 85027; 87077; 87086; 87186; 96361-59; 96374-59; 97110; 97112; 97116; 97161; 97165; 97530; 97535; 99285-25; A9270; J0744; J1956; J2405; J2765; J7030; P9612; Q9967

== ENCOUNTER 2020-12-30 13:01 | Emergency (ER) | payer MEDICARE ==
[~2020-12-30] VITALS: Ht 144.8 cm; Wt 61.2 kg
[~2020-12-30 13:01] MED LIST changes: +DOCUZEN 8.6-501 EACH PO; +DOXY100 PO; +GABA100; +MIRALAX17 GM PO; +VISBIOME 112.51 EACH PO
[2020-12-30 13:42] LABS: Source, Urine Catheter
[2020-12-30 13:47] LABS: Appearance, Urine Cloudy (Clear); Bilirubin, Urine Neg (Neg); Blood, Urine 3+ (Neg); Color, Urine Yellow (P-Yellow); Glucose Qualitative, Urine Neg (Neg); Ketones, Urine Neg (Neg); Leukocyte Esterase, Urine 3+ (Neg); Nitrite, Urine Pos (Neg); Protein, Urine 1+ (Neg); Urobilinogen, Urine NORM (Normal)
[2020-12-30 13:58] LABS: Bacteria Many /hpf; Squamous Epithelial Cells Rare /hpf (Few)
[2020-12-30 14:16] LABS: BASOPHILS ABSOLUTE AUTO 0.03 K/mm3 (0.00-0.23); BASOPHILS PERCENT AUTO 0 % (0-2); EOSINOPHILS ABSOLUTE AUTO 0.07 K/mm3 (0.00-0.68); EOSINOPHILS PERCENT AUTO 1 % (0-6); Hematocrit 31.4 % (33.0-51.0); Hemoglobin 10.7 g/dL (11.5-16.0); IMMATURE GRAN ABSOLUTE AUTO 0.02 K/mm3 (0.00-0.10); IMMATURE GRAN PERCENT AUTO 0 % (0-1); LYMPHOCYTES ABSOLUTE AUTO 0.29 K/mm3 (0.84-5.20); LYMPHOCYTES PERCENT AUTO 3 % (21-46); MONOCYTES ABSOLUTE AUTO 0.28 K/mm3 (0.16-1.47); MONOCYTES PERCENT AUTO 3 % (4-13); Mean Corpuscular HGB 31.2 pg (26.0-34.0); Mean Corpuscular HGB Conc 34.1 g/dL (31.5-36.5); Mean Corpuscular Volume 92 fL (80-100); Mean Platelet Volume 11.6 fL (9.1-12.4); NEUTROPHILS ABSOLUTE AUTO 9.26 K/mm3 (1.96-9.15); NEUTROPHILS PERCENT AUTO 93 % (41-73); Platelet Count 215 K/mm3 (150-400); RDW Coefficient Variation 12.4 % (11.7-14.2); RDW Standard Deviation 41.6 fL (35.1-46.3); Red Blood Cell Count 3.43 M/mm3 (3.80-5.20); White Blood Cell Count 9.95 K/mm3 (4.00-11.30)
[2020-12-30 14:39] LABS: Albumin, Blood 3.5 g/dL (3.4-5.0); Bilirubin, Total 0.3 mg/dL (0.1-1.0); Bun/Creatinine Ratio 22.9 (12.0-20.0); Calcium, Blood 9.2 mg/dL (8.5-10.1); Creatinine, Blood 1.4 mg/dL (0.40-1.00); Globulin, Blood 3.6 g/dL (2.2-4.0); Potassium, Blood 4.3 mmol/L (3.5-5.5); Total Protein, Blood 7.1 g/dL (6.4-8.2)
[2020-12-30] MEDS ORDERED: ONDA4ODT SL (15:57)
[2020-12-30] MEDS ORDERED: AMOCLA875 PO (15:57)
== END 2020-12-30 16:26 | disposition home or self-care (01) ==
LOC: ER 13:01
PROVIDERS: Emergency Medicine
DX: N39.0 Urinary tract infection, site not specified (principal); R19.7 Diarrhea, unspecified; E11.9 Type 2 diabetes mellitus without complications; E03.9 Hypothyroidism, unspecified; I11.0 Hypertensive heart disease with heart failure; I50.9 Heart failure, unspecified; Z88.2 Allergy status to sulfonamides; Z88.1 Allergy status to other antibiotic agents; Z79.4 Long term (current) use of insulin; Z79.82 Long term (current) use of aspirin; Z79.899 Other long term (current) drug therapy
CPT/HCPCS: 36415; 71045; 80053; 81001; 83605; 85025; 87040; 87077; 87086; 87186; 96365-59; 99284-25; J0295; J7030; P9612

== ENCOUNTER 2021-01-08 18:37 | Emergency (ER) | payer MEDICARE ==
[~2021-01-08] VITALS: Ht 144.8 cm; Wt 59.0 kg
[~2021-01-08 18:37] MED LIST changes: +AMOCLA875 PO; +ONDA4ODT SL
[2021-01-08 19:04] LABS: BASOPHILS ABSOLUTE AUTO 0.01 K/mm3 (0.00-0.23); BASOPHILS PERCENT AUTO 0 % (0-2); EOSINOPHILS ABSOLUTE AUTO 0.01 K/mm3 (0.00-0.68); EOSINOPHILS PERCENT AUTO 0 % (0-6); Hematocrit 31.8 % (33.0-51.0); Hemoglobin 10.9 g/dL (11.5-16.0); IMMATURE GRAN ABSOLUTE AUTO 0.02 K/mm3 (0.00-0.10); IMMATURE GRAN PERCENT AUTO 0 % (0-1); LYMPHOCYTES ABSOLUTE AUTO 1.08 K/mm3 (0.84-5.20); LYMPHOCYTES PERCENT AUTO 23 % (21-46); MONOCYTES ABSOLUTE AUTO 0.38 K/mm3 (0.16-1.47); MONOCYTES PERCENT AUTO 8 % (4-13); Mean Corpuscular HGB 31.1 pg (26.0-34.0); Mean Corpuscular HGB Conc 34.3 g/dL (31.5-36.5); Mean Corpuscular Volume 91 fL (80-100); Mean Platelet Volume 10.4 fL (9.1-12.4); NEUTROPHILS ABSOLUTE AUTO 3.23 K/mm3 (1.96-9.15); NEUTROPHILS PERCENT AUTO 68 % (41-73); Platelet Count 262 K/mm3 (150-400); RDW Coefficient Variation 12.5 % (11.7-14.2); RDW Standard Deviation 41.3 fL (35.1-46.3); White Blood Cell Count 4.73 K/mm3 (4.00-11.30)
[2021-01-08 19:10] LABS: Albumin, Blood 3.1 g/dL (3.4-5.0); Albumin/Globulin Ratio 0.7 (0.8-1.8); Bilirubin, Total 0.3 mg/dL (0.1-1.0); Bun/Creatinine Ratio 21.5 (12.0-20.0); Calcium, Blood 9.2 mg/dL (8.5-10.1); Creatinine, Blood 1.3 mg/dL (0.40-1.00); Globulin, Blood 4.3 g/dL (2.2-4.0); Total Protein, Blood 7.4 g/dL (6.4-8.2)
[2021-01-08 21:06] LABS: Source, Urine Catheter
[2021-01-08 21:08] LABS: Appearance, Urine Hazy (Clear); Bilirubin, Urine Neg (Neg); Blood, Urine 3+ (Neg); Color, Urine Yellow (P-Yellow); Glucose Qualitative, Urine Neg (Neg); Ketones, Urine Neg (Neg); Leukocyte Esterase, Urine 3+ (Neg); Nitrite, Urine Pos (Neg); Protein, Urine 2+ (Neg); Specific Gravity, Urine 1.015 (1.003-1.022); Urobilinogen, Urine NORM (Normal)
[2021-01-08 21:14] LABS: Bacteria Many /hpf; Squamous Epithelial Cells Mod /hpf (Few)
[2021-01-08] MEDS ORDERED: Macrobid 100 M100 MG PO (21:29)
[2021-01-09] MEDS ORDERED: CEPH500 PO (16:06)
[2021-01-12 22:06] LABS: ALKALINE PHOSPHATASE, S 75 IU/L (48-121); BONE FRACTION: 26 % (14-68); INTESTINAL FRAC.: 0 % (0-18); LIVER FRACTION: 74 % (18-85)
== END 2021-01-08 22:34 | disposition home or self-care (01) ==
LOC: ER 18:37
PROVIDERS: Emergency Medicine
DX: N39.0 Urinary tract infection, site not specified (principal); E11.9 Type 2 diabetes mellitus without complications; I10 Essential (primary) hypertension; E03.9 Hypothyroidism, unspecified; Z88.2 Allergy status to sulfonamides; Z88.1 Allergy status to other antibiotic agents; Z79.4 Long term (current) use of insulin; Z79.899 Other long term (current) drug therapy
CPT/HCPCS: 36415; 80053; 81001; 84075; 84080; 85025; 87077; 87086; 87186; 99284; A9270

== ENCOUNTER 2021-01-09 13:09 | Emergency (ER) | payer MEDICARE ==
[~2021-01-09] VITALS: Ht 144.8 cm; Wt 59.0 kg
[~2021-01-09 13:09] MED LIST changes: +Macrobid 100 M100 MG PO
[2021-01-09 13:49] LABS: BASOPHILS ABSOLUTE AUTO 0.01 K/mm3 (0.00-0.23); BASOPHILS PERCENT AUTO 0 % (0-2); EOSINOPHILS ABSOLUTE AUTO 0.01 K/mm3 (0.00-0.68); EOSINOPHILS PERCENT AUTO 0 % (0-6); Hematocrit 32.6 % (33.0-51.0); Hemoglobin 11.3 g/dL (11.5-16.0); IMMATURE GRAN ABSOLUTE AUTO 0.02 K/mm3 (0.00-0.10); IMMATURE GRAN PERCENT AUTO 0 % (0-1); LYMPHOCYTES ABSOLUTE AUTO 1.07 K/mm3 (0.84-5.20); LYMPHOCYTES PERCENT AUTO 20 % (21-46); MONOCYTES ABSOLUTE AUTO 0.36 K/mm3 (0.16-1.47); MONOCYTES PERCENT AUTO 7 % (4-13); Mean Corpuscular HGB Conc 34.7 g/dL (31.5-36.5); Mean Corpuscular Volume 90 fL (80-100); Mean Platelet Volume 10.6 fL (9.1-12.4); NEUTROPHILS ABSOLUTE AUTO 3.84 K/mm3 (1.96-9.15); NEUTROPHILS PERCENT AUTO 72 % (41-73); Platelet Count 288 K/mm3 (150-400); RDW Coefficient Variation 12.3 % (11.7-14.2); RDW Standard Deviation 40.4 fL (35.1-46.3); Red Blood Cell Count 3.64 M/mm3 (3.80-5.20); White Blood Cell Count 5.31 K/mm3 (4.00-11.30)
[2021-01-09 14:01] LABS: Albumin, Blood 3.3 g/dL (3.4-5.0); Albumin/Globulin Ratio 0.7 (0.8-1.8); Bilirubin, Total 0.4 mg/dL (0.1-1.0); Bun/Creatinine Ratio 21.2 (12.0-20.0); Calcium, Blood 9.5 mg/dL (8.5-10.1); Creatinine, Blood 1.32 mg/dL (0.40-1.00); Globulin, Blood 4.5 g/dL (2.2-4.0); Potassium, Blood 4.1 mmol/L (3.5-5.5); Total Protein, Blood 7.8 g/dL (6.4-8.2)
[2021-01-09] MEDS ORDERED: CEPH500 PO (16:06)
== END 2021-01-09 17:20 | disposition home or self-care (01) ==
LOC: ER 13:09
PROVIDERS: Emergency Medicine
DX: N39.0 Urinary tract infection, site not specified (principal); R19.7 Diarrhea, unspecified; Z79.4 Long term (current) use of insulin; Z79.899 Other long term (current) drug therapy
CPT/HCPCS: 80053; 85025; 93005; 93010; 96365; 99285-25; J0696; J7030

== ENCOUNTER → 2021-11-23 | Outpatient (CLI) | payer OTHER ==
[~2021-11-23] MED LIST changes: +CEPH500 PO
== END | disposition home or self-care (01) ==
LOC: LAB SHORT 09:10 → LAB 09:10
DX: E78.1 Pure hyperglyceridemia (principal); E11.21 Type 2 diabetes mellitus with diabetic nephropathy
CPT/HCPCS: 82043

== ENCOUNTER → 2023-01-11 | Outpatient (CLI) | payer OTHER ==
[~2023-01-11] MED LIST changes: +ATOR10 PO; +GABA300 PO; +GLIP2.5ER PO; +HUMALOG JU100 UNIT/2; +INSULANI; +LEVSOD25 PO; +LISI20 PO
[2023-01-11 11:55] LABS: Source, Urine Clean Catch
[2023-01-11 18:44] LABS: Appearance, Urine Hazy (Clear); Bilirubin, Urine Neg (Neg); Blood, Urine Neg (Neg); Color, Urine Yellow (P-Yellow); Glucose Qualitative, Urine Neg (Neg); Ketones, Urine Neg (Neg); Leukocyte Esterase, Urine 3+ (Neg); Nitrite, Urine Pos (Neg); Protein, Urine 1+ (Neg); Urobilinogen, Urine NORM (Normal)
[2023-01-11 19:04] LABS: Bacteria Many /hpf; Red Blood Cells, Urine 0-2 /hpf (0-2); Squamous Epithelial Cells Few /hpf (Few)
== END | disposition home or self-care (01) ==
LOC: LAB SHORT 11:00 → LAB 11:00
PROVIDERS: Registered Nurse
DX: R30.0 Dysuria (principal)
CPT/HCPCS: 81001; 87077; 87086; 87186

== ENCOUNTER → 2023-08-25 | Outpatient (CLI) | payer OTHER | END | disposition home or self-care (01) | LOC: LAB SHORT 12:15 → LAB 12:15 | DX: R30.0 Dysuria (principal) | CPT/HCPCS: 87077; 87086; 87186 ==

== ENCOUNTER 2024-03-02 11:41 | Emergency (ER) | payer OTHER ==
[~2024-03-02] VITALS: Ht 144.8 cm; Wt 57.6 kg
[2024-03-02] MEDS ORDERED: PHENYTOIN SODIUM IV ONE (14:05)
[2024-03-02] MEDS ORDERED: NS IV ONE (14:05)
[2024-03-02] MEDS ORDERED: NS 1,000 ML IV ONE (14:41)
[2024-03-02 14:58] LABS: BASOPHILS ABSOLUTE AUTO 0.05 K/mm3 (0.00-0.23); BASOPHILS PERCENT AUTO 1 % (0-2); EOSINOPHILS ABSOLUTE AUTO 0.14 K/mm3 (0.00-0.68); EOSINOPHILS PERCENT AUTO 2 % (0-6); Hematocrit 36.3 % (33.0-51.0); Hemoglobin 12.2 g/dL (11.5-16.0); IMMATURE GRAN ABSOLUTE AUTO 0.01 K/mm3 (0.00-0.10); IMMATURE GRAN PERCENT AUTO 0 % (0-1); LYMPHOCYTES ABSOLUTE AUTO 1.79 K/mm3 (0.84-5.20); LYMPHOCYTES PERCENT AUTO 30 % (21-46); MONOCYTES ABSOLUTE AUTO 0.36 K/mm3 (0.16-1.47); MONOCYTES PERCENT AUTO 6 % (4-13); Mean Corpuscular HGB 31.3 pg (26.0-34.0); Mean Corpuscular HGB Conc 33.6 g/dL (31.5-36.5); Mean Corpuscular Volume 93 fL (80-100); Mean Platelet Volume 11.3 fL (9.1-12.4); NEUTROPHILS PERCENT AUTO 60 % (41-73); Platelet Count 231 K/mm3 (150-400); RDW Coefficient Variation 12.5 % (11.7-14.2); RDW Standard Deviation 42.7 fL (35.1-46.3); White Blood Cell Count 5.95 K/mm3 (4.00-11.30)
[2024-03-02 15:15] LABS: Albumin, Blood 3.9 g/dL (3.4-5.0); Bilirubin, Total 0.5 mg/dL (0.1-1.0); Bun/Creatinine Ratio 14.9 (12.0-20.0); Calcium, Blood 9.9 mg/dL (8.5-10.1); Creatinine, Blood 1.01 mg/dL (0.40-1.00); Globulin, Blood 3.8 g/dL (2.2-4.0); Magnesium, Blood 2.3 mg/dL (1.6-2.4); Potassium, Blood 4.4 mmol/L (3.5-5.5); Total Protein, Blood 7.7 g/dL (6.4-8.2)
[2024-03-02] MEDS ORDERED: NS 1,000 ML IV SCH (15:50)
[2024-03-02 16:55] VITALS: BP 175/70
== END 2024-03-02 17:07 | disposition home or self-care (01) ==
LOC: ER 11:41
PROVIDERS: Physician Assistant
DX: M79.2 Neuralgia and neuritis, unspecified (principal); Z88.2 Allergy status to sulfonamides; Z88.1 Allergy status to other antibiotic agents; Z79.899 Other long term (current) drug therapy; Z79.4 Long term (current) use of insulin; E11.40 Type 2 diabetes mellitus with diabetic neuropathy, unspecified; I10 Essential (primary) hypertension; E03.9 Hypothyroidism, unspecified
CPT/HCPCS: 70450; 80053; 83735; 85025; 93005; 93010; 96365; 99284-25; J1165; J7030

== ENCOUNTER 2024-03-29 11:39 | Emergency (ER) | payer OTHER ==
[~2024-03-29] VITALS: Ht 139.7 cm; Wt 57.1 kg
[2024-03-29 12:15] LABS: BASOPHILS ABSOLUTE AUTO 0.04 K/mm3 (0.00-0.23); BASOPHILS PERCENT AUTO 1 % (0-2); EOSINOPHILS PERCENT AUTO 2 % (0-6); IMMATURE GRAN ABSOLUTE AUTO 0.01 K/mm3 (0.00-0.10); IMMATURE GRAN PERCENT AUTO 0 % (0-1); LYMPHOCYTES ABSOLUTE AUTO 1.25 K/mm3 (0.84-5.20); LYMPHOCYTES PERCENT AUTO 23 % (21-46); MONOCYTES ABSOLUTE AUTO 0.36 K/mm3 (0.16-1.47); MONOCYTES PERCENT AUTO 7 % (4-13); Mean Corpuscular HGB 32.3 pg (26.0-34.0); Mean Corpuscular HGB Conc 34.4 g/dL (31.5-36.5); Mean Corpuscular Volume 94 fL (80-100); Mean Platelet Volume 11.5 fL (9.1-12.4); NEUTROPHILS PERCENT AUTO 68 % (41-73); Platelet Count 223 K/mm3 (150-400); RDW Coefficient Variation 12.6 % (11.7-14.2); RDW Standard Deviation 43.3 fL (35.1-46.3); Red Blood Cell Count 3.41 M/mm3 (3.80-5.20); White Blood Cell Count 5.46 K/mm3 (4.00-11.30)
[2024-03-29 12:25] LABS: Albumin, Blood 3.3 g/dL (3.4-5.0); Albumin/Globulin Ratio 0.9 (0.8-1.8); Bilirubin, Total 0.4 mg/dL (0.1-1.0); Bun/Creatinine Ratio 19.8 (12.0-20.0); Calcium, Blood 9.6 mg/dL (8.5-10.1); Creatinine, Blood 1.11 mg/dL (0.40-1.00); Globulin, Blood 3.6 g/dL (2.2-4.0); Total Protein, Blood 6.9 g/dL (6.4-8.2)
[2024-03-29 13:37] LABS: Source, Urine Straight Cath
[2024-03-29 13:41] LABS: Appearance, Urine Hazy (Clear); Bilirubin, Urine Neg (Neg); Blood, Urine Neg (Neg); Glucose Qualitative, Urine 1+ (Neg); Ketones, Urine Neg (Neg); Leukocyte Esterase, Urine 2+ (Neg); Nitrite, Urine Pos (Neg); Protein, Urine Neg (Neg); Urobilinogen, Urine NORM (Normal)
[2024-03-29 13:50] LABS: Color, Urine Pale Yellow (P-Yellow)
[2024-03-29 13:52] LABS: Bacteria Many /hpf; Red Blood Cells, Urine 0-2 /hpf (0-2); Squamous Epithelial Cells Rare /hpf (Few); Transitional Epithelial Cells Rare /hpf (0-Rare)
[2024-03-29] MEDS ORDERED: Fosfomycin Tromethamine 3 GM Packet PO ONE (14:10)
[2024-03-29 14:45] VITALS: BP 155/57
== END 2024-03-29 14:54 | disposition home or self-care (01) ==
LOC: ER 11:39
PROVIDERS: Emergency Medicine
DX: N39.0 Urinary tract infection, site not specified (principal); E03.9 Hypothyroidism, unspecified; I12.9 Hypertensive chronic kidney disease with stage 1 through stage 4 chronic kidney disease, or unspecified chronic kidney disease; I50.9 Heart failure, unspecified; E11.40 Type 2 diabetes mellitus with diabetic neuropathy, unspecified; Z79.82 Long term (current) use of aspirin; Z79.4 Long term (current) use of insulin; Z88.2 Allergy status to sulfonamides; Z88.1 Allergy status to other antibiotic agents; Z88.8 Allergy status to other drugs, medicaments and biological substances
CPT/HCPCS: 80053; 81001; 85025; 87077; 87086; 87186; 93005; 93010; 99284-25; A9270

== ENCOUNTER 2024-08-01 21:04 | Emergency (ER) | payer OTHER ==
[~2024-08-01] VITALS: Ht 157.5 cm; Wt 49.9 kg
[2024-08-01 21:51] LABS: CORONAVIRUS COVID-19 AG Negative (NEGATIVE); INFLUENZA A AG Negative (NEGATIVE); INFLUENZA B AG Negative (NEGATIVE)
[2024-08-01 22:34] LABS: Source, Urine Clean Catch
[2024-08-01 22:38] LABS: Appearance, Urine Hazy (Clear); Bilirubin, Urine Neg (Neg); Blood, Urine 1+ (Neg); Color, Urine Yellow (P-Yellow); Glucose Qualitative, Urine 4+ (Neg); Ketones, Urine Neg (Neg); Leukocyte Esterase, Urine 2+ (Neg); Nitrite, Urine Neg (Neg); Protein, Urine Neg (Neg); Specific Gravity, Urine 1.015 (1.003-1.022); Urobilinogen, Urine NORM (Normal); pH, Urine 6.5 (5.0-8.0)
[2024-08-01 22:54] LABS: BASOPHILS ABSOLUTE AUTO 0.04 K/mm3 (0.00-0.23); BASOPHILS PERCENT AUTO 1 % (0-2); EOSINOPHILS ABSOLUTE AUTO 0.11 K/mm3 (0.00-0.68); EOSINOPHILS PERCENT AUTO 2 % (0-6); Hematocrit 34.9 % (33.0-51.0); IMMATURE GRAN ABSOLUTE AUTO 0.01 K/mm3 (0.00-0.10); IMMATURE GRAN PERCENT AUTO 0 % (0-1); LYMPHOCYTES ABSOLUTE AUTO 1.61 K/mm3 (0.84-5.20); LYMPHOCYTES PERCENT AUTO 30 % (21-46); MONOCYTES ABSOLUTE AUTO 0.46 K/mm3 (0.16-1.47); MONOCYTES PERCENT AUTO 9 % (4-13); Mean Corpuscular HGB 31.7 pg (26.0-34.0); Mean Corpuscular HGB Conc 34.4 g/dL (31.5-36.5); Mean Corpuscular Volume 92 fL (80-100); Mean Platelet Volume 11.1 fL (9.1-12.4); NEUTROPHILS ABSOLUTE AUTO 3.13 K/mm3 (1.96-9.15); NEUTROPHILS PERCENT AUTO 58 % (41-73); Platelet Count 240 K/mm3 (150-400); RDW Coefficient Variation 12.3 % (11.7-14.2); RDW Standard Deviation 41.3 fL (35.1-46.3); Red Blood Cell Count 3.78 M/mm3 (3.80-5.20); White Blood Cell Count 5.36 K/mm3 (4.00-11.30)
[2024-08-01 23:00] VITALS: BP 173/74
[2024-08-01 23:02] LABS: Bacteria Many /hpf; Red Blood Cells, Urine 0-2 /hpf (0-2); Squamous Epithelial Cells Many /hpf (Few)
[2024-08-01 23:15] LABS: Albumin, Blood 3.8 g/dL (3.4-5.0); Bilirubin, Total 0.4 mg/dL (0.1-1.0); Bun/Creatinine Ratio 20.6 (12.0-20.0); Creatinine, Blood 1.07 mg/dL (0.40-1.00); Globulin, Blood 3.8 g/dL (2.2-4.0); Potassium, Blood 3.9 mmol/L (3.5-5.5); Total Protein, Blood 7.6 g/dL (6.4-8.2)
[2024-08-01] MEDS ORDERED: NITR100CA PO (23:40)
[2024-08-01] MEDS ORDERED: Nitrofurantoin/Nitrofuran Mac 100 MG Cap PO ONE (23:40)
== END 2024-08-01 23:56 | disposition home or self-care (01) ==
LOC: ER 21:04
PROVIDERS: Physician Assistant; Student in an Organized Health Care Education/Training Program
DX: R42 Dizziness and giddiness (principal); N39.0 Urinary tract infection, site not specified; E11.42 Type 2 diabetes mellitus with diabetic polyneuropathy; I11.0 Hypertensive heart disease with heart failure; I50.9 Heart failure, unspecified; E11.40 Type 2 diabetes mellitus with diabetic neuropathy, unspecified; E03.9 Hypothyroidism, unspecified; G47.30 Sleep apnea, unspecified; Z88.2 Allergy status to sulfonamides; Z88.1 Allergy status to other antibiotic agents; Z88.8 Allergy status to other drugs, medicaments and biological substances; Z79.890 Hormone replacement therapy; Z79.4 Long term (current) use of insulin; Z79.82 Long term (current) use of aspirin; Z79.899 Other long term (current) drug therapy
CPT/HCPCS: 80053; 81001; 85025; 87077; 87086; 87186; 87428-QW; 93005; 93010; 99284-25; A9270

== ENCOUNTER 2024-10-11 20:05 | Emergency (ER) | payer OTHER ==
[~2024-10-11] VITALS: Ht 147.3 cm; Wt 52.2 kg
[2024-10-11 20:28] VITALS: BP 184/82
[2024-10-11] MEDS ORDERED: Naproxen 250 MG TAB PO ONE (22:20)
== END 2024-10-11 22:25 | disposition home or self-care (01) ==
LOC: ER 20:05
DX: S80.01XA Contusion of right knee, initial encounter (principal); I11.0 Hypertensive heart disease with heart failure; I50.9 Heart failure, unspecified; E11.40 Type 2 diabetes mellitus with diabetic neuropathy, unspecified; Z88.2 Allergy status to sulfonamides; Z88.1 Allergy status to other antibiotic agents; Z79.899 Other long term (current) drug therapy; Z79.4 Long term (current) use of insulin; Z79.82 Long term (current) use of aspirin; Z79.1 Long term (current) use of non-steroidal anti-inflammatories (NSAID); Z79.01 Long term (current) use of anticoagulants; Z96.651 Presence of right artificial knee joint; W18.30XA Fall on same level, unspecified, initial encounter
CPT/HCPCS: 73562-RT; 99283-25; A9270

== ENCOUNTER → 2024-10-21 | Outpatient (CLI) | payer OTHER ==
[2024-10-21 14:46] LABS: Source, Urine Clean Catch
[2024-10-21 19:10] LABS: Appearance, Urine Hazy (Clear); Bilirubin, Urine Neg (Neg); Blood, Urine Neg (Neg); Color, Urine Yellow (P-Yellow); Glucose Qualitative, Urine 2+ (Neg); Ketones, Urine Neg (Neg); Leukocyte Esterase, Urine 1+ (Neg); Nitrite, Urine Pos (Neg); Protein, Urine 1+ (Neg); Urobilinogen, Urine NORM (Normal)
[2024-10-21 19:28] LABS: Bacteria Many /hpf; Hyaline Casts 0-2 /lpf (0-2); Red Blood Cells, Urine 0-2 /hpf (0-2); Squamous Epithelial Cells Mod /hpf (Few); Transitional Epithelial Cells Few /hpf (0-Rare)
== END ==
LOC: LAB 14:34 → LAB SHORT 14:34
PROVIDERS: Family Medicine
DX: N39.0 Urinary tract infection, site not specified (principal)
CPT/HCPCS: 81001; 87077; 87086; 87186

== ENCOUNTER 2024-11-20 09:48 | Emergency (ER) | payer OTHER ==
[~2024-11-20] VITALS: Ht 144.8 cm; Wt 49.9 kg
[2024-11-20] MEDS ORDERED: NS 1,000 ML IV SCH ×3 (10:05→10:30)
[2024-11-20 10:54] LABS: BASOPHILS ABSOLUTE AUTO 0.05 K/mm3 (0.00-0.23); BASOPHILS PERCENT AUTO 1 % (0-2); EOSINOPHILS ABSOLUTE AUTO 0.24 K/mm3 (0.00-0.68); EOSINOPHILS PERCENT AUTO 5 % (0-6); Hematocrit 34.1 % (33.0-51.0); Hemoglobin 11.4 g/dL (11.5-16.0); IMMATURE GRAN ABSOLUTE AUTO 0.01 K/mm3 (0.00-0.10); IMMATURE GRAN PERCENT AUTO 0 % (0-1); LYMPHOCYTES ABSOLUTE AUTO 1.34 K/mm3 (0.84-5.20); LYMPHOCYTES PERCENT AUTO 27 % (21-46); MONOCYTES PERCENT AUTO 6 % (4-13); Mean Corpuscular HGB 31.1 pg (26.0-34.0); Mean Corpuscular HGB Conc 33.4 g/dL (31.5-36.5); Mean Corpuscular Volume 93 fL (80-100); Mean Platelet Volume 11.4 fL (9.1-12.4); NEUTROPHILS PERCENT AUTO 61 % (41-73); Platelet Count 229 K/mm3 (150-400); RDW Coefficient Variation 12.5 % (11.7-14.2); RDW Standard Deviation 42.9 fL (35.1-46.3); Red Blood Cell Count 3.66 M/mm3 (3.80-5.20); White Blood Cell Count 4.94 K/mm3 (4.00-11.30)
[2024-11-20 11:08] LABS: Albumin, Blood 3.5 g/dL (3.4-5.0); Bilirubin, Total 0.4 mg/dL (0.1-1.0); Calcium, Blood 9.4 mg/dL (8.5-10.1); Globulin, Blood 3.6 g/dL (2.2-4.0); Phosphorus, Blood 2.4 mg/dL (2.5-4.9); Potassium, Blood 4.2 mmol/L (3.5-5.5); Total Protein, Blood 7.1 g/dL (6.4-8.2)
[2024-11-20] MEDS ORDERED: Labetalol HCL 5 MG/ML 4ML Injection (Single Dose) IV ONE (11:25)
[2024-11-20 12:28] LABS: Source, Urine Clean Catch
[2024-11-20 12:43] LABS: Appearance, Urine Hazy (Clear); Bilirubin, Urine Neg (Neg); Blood, Urine Neg (Neg); Glucose Qualitative, Urine 2+ (Neg); Ketones, Urine Neg (Neg); Leukocyte Esterase, Urine 3+ (Neg); Nitrite, Urine Pos (Neg); Protein, Urine 1+ (Neg); Urobilinogen, Urine NORM (Normal)
[2024-11-20 12:51] LABS: Color, Urine Pale Yellow (P-Yellow)
[2024-11-20 12:54] LABS: Bacteria Many /hpf; Red Blood Cells, Urine Not Seen /hpf (0-2); Squamous Epithelial Cells Many /hpf (Few)
[2024-11-20 13:00] VITALS: BP 156/67
[2024-11-20] MEDS ORDERED: Nitrofurantoin/Nitrofuran Mac 100 MG Cap PO ONE (14:05)
[2024-11-20] MEDS ORDERED: NITR100CA PO (14:35)
== END 2024-11-20 15:10 | disposition home or self-care (01) ==
LOC: ER 09:48
PROVIDERS: Student in an Organized Health Care Education/Training Program
DX: N39.0 Urinary tract infection, site not specified (principal); I11.0 Hypertensive heart disease with heart failure; I50.9 Heart failure, unspecified; E11.9 Type 2 diabetes mellitus without complications; Z59.89 Other problems related to housing and economic circumstances; Z88.2 Allergy status to sulfonamides; Z88.5 Allergy status to narcotic agent; Z88.9 Allergy status to unspecified drugs, medicaments and biological substances; Z79.899 Other long term (current) drug therapy; Z79.1 Long term (current) use of non-steroidal anti-inflammatories (NSAID); Z79.52 Long term (current) use of systemic steroids; Z79.51 Long term (current) use of inhaled steroids; Z79.83 Long term (current) use of bisphosphonates; Z79.890 Hormone replacement therapy
CPT/HCPCS: 80053; 81001; 83735; 84100; 84443; 84484; 85025; 87077; 87086; 87186; 93005; 93010; 96361; 96374; 99285-25; A6590; A9270; J7030

== ENCOUNTER 2024-11-22 11:36 | Emergency (ER) | payer OTHER ==
[~2024-11-22] VITALS: Ht 157.5 cm; Wt 54.4 kg
[2024-11-22 11:59] LABS: BASOPHILS ABSOLUTE AUTO 0.05 K/mm3 (0.00-0.23); BASOPHILS PERCENT AUTO 1 % (0-2); EOSINOPHILS ABSOLUTE AUTO 0.05 K/mm3 (0.00-0.68); EOSINOPHILS PERCENT AUTO 1 % (0-6); Hematocrit 36.4 % (33.0-51.0); Hemoglobin 12.4 g/dL (11.5-16.0); IMMATURE GRAN ABSOLUTE AUTO 0.01 K/mm3 (0.00-0.10); IMMATURE GRAN PERCENT AUTO 0 % (0-1); LYMPHOCYTES ABSOLUTE AUTO 1.08 K/mm3 (0.84-5.20); LYMPHOCYTES PERCENT AUTO 20 % (21-46); MONOCYTES ABSOLUTE AUTO 0.25 K/mm3 (0.16-1.47); MONOCYTES PERCENT AUTO 5 % (4-13); Mean Corpuscular HGB 31.2 pg (26.0-34.0); Mean Corpuscular HGB Conc 34.1 g/dL (31.5-36.5); Mean Corpuscular Volume 92 fL (80-100); Mean Platelet Volume 11.4 fL (9.1-12.4); NEUTROPHILS ABSOLUTE AUTO 4.07 K/mm3 (1.96-9.15); NEUTROPHILS PERCENT AUTO 74 % (41-73); Platelet Count 256 K/mm3 (150-400); RDW Coefficient Variation 12.4 % (11.7-14.2); RDW Standard Deviation 41.5 fL (35.1-46.3); Red Blood Cell Count 3.97 M/mm3 (3.80-5.20); White Blood Cell Count 5.51 K/mm3 (4.00-11.30)
[2024-11-22 12:31] LABS: Albumin, Blood 3.8 g/dL (3.4-5.0); Bilirubin, Total 0.5 mg/dL (0.1-1.0); Bun/Creatinine Ratio 21.9 (12.0-20.0); Calcium, Blood 9.9 mg/dL (8.5-10.1); Creatinine, Blood 0.91 mg/dL (0.40-1.00); Globulin, Blood 3.7 g/dL (2.2-4.0); Potassium, Blood 4.1 mmol/L (3.5-5.5); Total Protein, Blood 7.5 g/dL (6.4-8.2)
[2024-11-22] MEDS ORDERED: Insulin Regular 100 Unit/ML 1ML Dose IV ONE (15:45)
[2024-11-22 17:03] LABS: Source, Urine Clean Catch
[2024-11-22 17:06] LABS: Appearance, Urine Clear (Clear); Bilirubin, Urine Neg (Neg); Blood, Urine Neg (Neg); Color, Urine Yellow (P-Yellow); Glucose Qualitative, Urine 3+ (Neg); Ketones, Urine 3+ (Neg); Leukocyte Esterase, Urine Neg (Neg); Nitrite, Urine Neg (Neg); Protein, Urine 1+ (Neg); Specific Gravity, Urine 1.015 (1.003-1.022); Urobilinogen, Urine NORM (Normal)
[2024-11-22 17:58] VITALS: BP 175/80
== END 2024-11-22 18:01 | disposition home or self-care (01) ==
LOC: ER 11:36
PROVIDERS: Student in an Organized Health Care Education/Training Program
DX: N39.0 Urinary tract infection, site not specified (principal); I11.0 Hypertensive heart disease with heart failure; I50.9 Heart failure, unspecified; E11.40 Type 2 diabetes mellitus with diabetic neuropathy, unspecified; G47.30 Sleep apnea, unspecified; Z88.2 Allergy status to sulfonamides; Z88.1 Allergy status to other antibiotic agents; Z79.890 Hormone replacement therapy; Z79.899 Other long term (current) drug therapy; Z79.4 Long term (current) use of insulin; Z79.82 Long term (current) use of aspirin
CPT/HCPCS: 80053; 85025; 93005; 93010; 99283-25; A6590

== ENCOUNTER → 2025-04-30 | Outpatient (CLI) | payer OTHER | LOC: LAB SHORT 19:27 → LAB 19:27 | DX: R30.0 Dysuria (principal) | CPT/HCPCS: 87077; 87086; 87186 ==